=== PATIENT | female | born 2000 | race Caucasian/White ===

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

== ENCOUNTER → 2020-01-19 | Outpatient (CLI) | payer BC, OTHER | LOC: M LABSMTC 14:40 | PROVIDERS: ATTEND Family Medicine | DX: Z20.828 Contact with and (suspected) exposure to other viral communicable diseases (principal) ==

== ENCOUNTER → 2020-06-07 | Outpatient (REF) | payer OTHER ==
[~2020-06-07] MED LIST: ACET-683 PO; BABY ASP; FERR325T3 PO; IBUP-1022 PO; IBUP80TA PO; LABE200T32 PO; MACR100C43 PO; MAPA500T2 PO; ONDA4TAB6 PO; Ortho-Evra TD; PRENTAB9 PO; RANI15TA PO; RANI1SYP PO; asprin
== END ==
LOC: M SFHCWAGY 12:48
PROVIDERS: ATTEND Specialist
DX: Z34.83 Encounter for supervision of other normal pregnancy, third trimester (principal)

== ENCOUNTER → 2020-06-11 | Outpatient (CLI) | payer BC ==
--- NOTE | 2020-06-11 09:41 | REP ---
INDICATION: GROWTH - HYPERTENSION COMPARISON: 05/21/2020 TECHNIQUE: Transabdominal obstetrical ultrasound with color Doppler evaluation. FINDINGS: Examination demonstrates a single live intrauterine in cephalic presentation. motion is identified by technologist. Placenta is noted posterior and grade 3 without evidence for placenta previa or abruption. Amniotic fluid volume is normal. Cervix appears closed.. Gestational age by LMP 36 weeks 1 day with DESIREE 07/08/2020. Gestational age by current measurements 34 weeks 3 days with DESIREE 07/20/2020. FHR equals 129 beats per minute. Estimated weight 2409 grams (12thpercentile based on age by LMP). ASHWINI: 9.5 cm (7.7-24.8) Umbilical artery 1 SD ratio: 2.75 (1.63-3.50) IMPRESSION: Single live intrauterine in cephalic presentation demonstrating relatively appropriate interval growth. No gross abnormalities are identified. <Electronically signed by Mars Fu > 06/11/20 0937
== END ==
LOC: MERGE 09:00 → M WHC 09:01
PROVIDERS: ATTEND Advanced Practice Midwife
DX: O10.013 Pre-existing essential hypertension complicating pregnancy, third trimester (principal); Z3A.36 36 weeks gestation of pregnancy

== ENCOUNTER 2020-06-23 08:39 | Inpatient (IN) | payer BC, OTHER ==
[~2020-06-23] VITALS: Ht 160 cm; Wt 87.8 kg
[2020-06-23] VITALS (25 sets, daily range): BP systolic 112–150; BP diastolic 61–96
[2020-06-23] MEDS ORDERED: ASPI81CH33 PO (08:59)
[2020-06-23] MEDS ORDERED: OXYTOCIN DRIP 30 UNITS in IV 1 EA IV PRN (09:30)
[2020-06-23] MEDS ORDERED: LIDOCAINE 1% MDV 20ML VIAL INFIL PRN (09:30)
[2020-06-23] MEDS ORDERED: METHYLERGONOVINE MALEATE 0.2 MG/ML VIAL (J2210) IM PRN (09:30)
[2020-06-23] MEDS ORDERED: OXYTOCIN INJ 10 UNITS/ML VIAL (J2590) IM PRN (09:30)
[2020-06-23] MEDS ORDERED: FERR325T81 PO (09:39)
[2020-06-23] MEDS ORDERED: miSOPROStol 50MCG 1/2 TABLET PO SCH (09:45)
[2020-06-23 10:26] LABS: HEMATOCRIT 32.2 % (36.0-47.0); MEAN CORPUSCULAR HEMOGLOBIN 23.2 pg (27.0-33.0); MEAN CORPUSCULAR HGB CONC 31.1 g/dl (32.0-36.5); MEAN CORPUSCULAR VOLUME 74.7 fl (80.0-96.0); PLATELET COUNT, AUTOMATED 199 10^3/uL (150-450); RED BLOOD COUNT 4.31 10^6/uL (4.00-5.40); WHITE BLOOD COUNT 6.8 10^3/uL (4.0-10.0)
[2020-06-23 11:18] LABS: ALT/SGPT 17 U/L (12-78); BILIRUBIN,TOTAL 0.4 MG/DL (0.2-1.0); CREATININE FOR GFR 0.49 MG/DL (0.55-1.30); GLOMERULAR FILTRATION RATE > 60.0 (>60); LDH LACTATE DEHYDROGENASE 213 U/L (84-246); URIC ACID 3.4 MG/DL (2.6-6.0)
--- NOTE | 2020-06-23 12:00 | HPE ---
HISTORY AND PHYSICAL DATE OF ADMISSION: 06/23/2020 HISTORY OF PRESENT ILLNESS: Sammi is a 20-year-old 2 para 1-0-0-1 at 38 weeks gestation, EDC of 07/08/2020 based on last menstrual period and confirmed by first trimester ultrasound. She presents to Labor and Delivery today for induction of labor due to chronic hypertension. [facility] in the first trimester. He course was complicated by chronic hypertension. She has been well-managed with p.o. Labetalol throughout her . OBSTETRIC HISTORY: In September 2018, 37 weeks, 2 days, vaginal delivery following an induction for gestational hypertension, preeclampsia, 6 pound male, vaginal delivery. OBSTETRIC LABS: A positive, antibody screen negative, syphilis negative, gonorrhea and chlamydia negative, hepatitis B negative, hepatitis C negative. HIV negative. Rubella immune. Gestational diabetic screening normal at 110. Urine culture: No growth. GBS is negative. PAST MEDICAL HISTORY: Seborrheic dermatitis, mononucleosis, frequent urinary tract infections, psoriasis, childhood varicella, asthma, chronic hypertension. PAST SURGICAL HISTORY: Tooth extraction. FAMILY HISTORY: Noncontributory. SOCIAL HISTORY: Nonsmoker. Denies alcohol and drug use. Denies any history of sexually transmitted infections. Denies history of abuse, physical, sexual or emotional. ALLERGIES: Bee stings and bubble gum flavors. CURRENT MEDICATIONS: Labetalol, vitamin. OBJECTIVE: Temperature 97.5, pulse 106, respirations 18, blood pressure 131/84, heart rate is 135 with moderate variability, positive accelerations, negative decelerations. There is no pattern of regular contractions. Her abdomen is gravid. Cephalic presentation. Estimated weight 6.5 pounds. Sterile vaginal exam, 1.5 cm dilated, 80% effaced, -2 station. ASSESSMENT: Intrauterine at 38 weeks. heart rate Category 1, essential hypertension. PLAN: Admit patient to Labor and Delivery. Saline lock, out of bed ad raymond, routine laboratories including preeclamptic profile, regular diet at this time. I plan to start Misoprostol 50 mcg p.o. for cervical ripening, will likely start IV Pitocin, consider assisted rupture of membranes. Reviewed risks, benefits and alternatives with the patient and her partner, all of their questions have been answered. She has been verbally consented for emergency surgery and blood products if they are necessary. I do anticipate cervical ripening, labor and a spontaneous vaginal delivery.
[2020-06-23] MEDS ORDERED: LR 1,000 ML IV SCH (13:55)
[2020-06-23] MEDS ORDERED: OXYTOCIN DRIP 30 UNITS in IV 1 EA IV SCH (13:55)
[2020-06-23] MEDS ORDERED: ACETAMINOPHEN 500 MG TAB PO PRN (18:25)
[2020-06-23] MEDS: LABETALOL 200 MG TAB PO SCH (18:55)
[2020-06-23] MEDS ORDERED: BUTORPHANOL 2 MG/ML INJ (J0595) IV ONE (23:05)
[2020-06-23] MEDS ORDERED: PROMETHAZINE INJ 25 MG/ML VIAL (J2550) IV ONE (23:05)
[2020-06-24] VITALS (8 sets, daily range): BP systolic 125–141; BP diastolic 70–88
[2020-06-24] MEDS ORDERED: ACETAMINOPHEN TAB 650MG DOSE (2X325MG) PO PRN (00:20)
[2020-06-24] MEDS ORDERED: RHOGAM 300 MCG (1500 IU) INJ (J2790) IM SCH (00:20)
[2020-06-24] MEDS ORDERED: MEASLES,MUMPS,RUBELLA VACCINE INJ (MMR-II) (90707) SC SCH (00:20)
[2020-06-24] MEDS ORDERED: DIBUCAINE 1% OINTMENT 30GM TOP PRN (00:20)
[2020-06-24] MEDS ORDERED: IBUPROFEN 600MG TAB PO PRN (00:20)
[2020-06-24] MEDS ORDERED: IBUPROFEN 800 MG TAB PO PRN (00:20)
[2020-06-24] MEDS ORDERED: DOCUSATE SODIUM 100MG CAPSULE PO PRN (00:20)
--- NOTE | 2020-06-24 09:37 | DN ---
DELIVERY NOTE DATE OF DELIVERY: 06/23/2020 TIME OF : 2349 GENDER: Male APGARS: 9 and 9 LACERATIONS: Vaginal laceration ANESTHESIA: ESTIMATED BLOOD LOSS: 500 mL COUNTS: Correct and verified DESCRIPTION OF DELIVERY: Sammi Barragan is a 20-year-old 2, para 2-0-0-2 now, who was admitted to labor and delivery for induction of labor. Misoprostol and I.V. Pitocin were used and labor did ensue. She coped with her labor with I.V. pain medication. She reached full dilation at 2345. She pushed to a normal spontaneous vaginal delivery of a live male infant in OA position with restitution to ROT position at 2349. There was nuchal cord x1, loose, that was reduced manually at the time of delivery. shoulders delivered spontaneously and the corpus immediately followed. He was placed on the maternal abdomen, crying and active. His mouth and nares were bulb suctioned. The cord was clamped x2 once pulsations ceased and cut by the father of the baby under my direction. Cord blood was obtained. A spontaneous expulsion of an intact placenta with three-vessel cord by Kimball mechanism was at 2354. Uterine hemostasis was achieved with I.V. Uterine hemostasis achieved with Pitocin rapid infusion and uterine fundal massage. Estimated blood loss was 500 mL. Perineum and vaginal inspected and noted to have a vaginal laceration that had two sutures placed with 3-0 Vicryl Rapide for hemostasis. male weighed 3140 grams, 6 pounds 15 ounces. Apgars were 9 and 9. Mom is going to breastfeed her son and the family has named him Usama. At the close of delivery, lap counts, needle counts, and instrument counts were correct and verified. [facility]
[2020-06-24] MEDS: PRENATAL VITAMINS CHEWABLE TABLET PO SCH (09:50)
[2020-06-24] MEDS: LABETALOL 200 MG TAB PO SCH ×2 (09:53→20:33)
[2020-06-25 05:39] VITALS: BP 135/70
[2020-06-25] MEDS: PRENATAL VITAMINS CHEWABLE TABLET PO SCH (08:57)
[2020-06-25 08:58] VITALS: BP 116/81
[2020-06-25] MEDS: LABETALOL 200 MG TAB PO SCH (08:58)
== END 2020-06-25 10:14 | disposition home or self-care (01) | DRG 560 ==
LOC: M LDI 08:39 → M OBS 06-24 01:40
PROVIDERS: ADMIT Advanced Practice Midwife; ATTEND Advanced Practice Midwife
PROC: 10E0XZZ Delivery of Products of Conception, External Approach (ICD-10-PCS; principal; 2020-06-23)
PROC: 3E033VJ Introduction of Other Hormone into Peripheral Vein, Percutaneous Approach (ICD-10-PCS; 2020-06-23)
PROC: 0HQ9XZZ Repair Perineum Skin, External Approach (ICD-10-PCS; 2020-06-23)
DX: O10.02 Pre-existing essential hypertension complicating childbirth (principal); Z3A.38 38 weeks gestation of pregnancy; Z37.0 Single live birth; O69.81X0 Labor and delivery complicated by cord around neck, without compression, not applicable or unspecified; O70.0 First degree perineal laceration during delivery

== ENCOUNTER → 2021-09-02 | Outpatient (REF) | payer OTHER ==
[~2021-09-02] MED LIST changes: -ACET-683 PO; +ASPI81CH33 PO; -BABY ASP; +COLA100C5 PO; +EXCETAB81 PO; -FERR325T3 PO; +FERR325T81 PO; -IBUP-1022 PO; -IBUP80TA PO; -LABE200T32 PO; +LEVO175T2 PO; +LEVO200T4 PO; +LISI10TA22 PO; +LISI40TA4 PO; -MACR100C43 PO; -MAPA500T2 PO; +MIRA3350 PO; +MM S100C PO; +OMEP40CA4 PO; -ONDA4TAB6 PO; -Ortho-Evra TD; -PRENTAB9 PO; -RANI15TA PO; -RANI1SYP PO; +REGL10TA6 PO; +TOPA100T12 PO; +TYLE325T5 PO; +VENTAER INH; +WOME5TAB PO; +ZOFR4TAB16 PO; -asprin; +vitamin d PO
[2021-09-02 15:51] LABS: BASO % 0.2 % (0.0-1.0); EOS # 0.1 10^3/uL (0.0-0.5); EOS % 1.7 % (0.0-3.0); HEMATOCRIT 36.2 % (36.0-47.0); HEMOGLOBIN 11.3 g/dl (12.0-15.5); LYMPH # 1.1 10^3/uL (1.5-5.0); LYMPH % 19.9 % (24.0-44.0); MEAN CORPUSCULAR HEMOGLOBIN 25.2 pg (27.0-33.0); MEAN CORPUSCULAR HGB CONC 31.2 g/dl (32.0-36.5); MEAN CORPUSCULAR VOLUME 80.8 fl (80.0-96.0); MONO # 0.5 10^3/uL (0.0-0.8); MONO % 8.5 % (2.0-8.0); NEUTROPHILS # 3.7 10^3/uL (1.5-8.5); NEUTROPHILS % 69.5 % (36.0-66.0); PLATELET COUNT, AUTOMATED 251 10^3/uL (150-450); RED BLOOD COUNT 4.48 10^6/uL (4.00-5.40); WHITE BLOOD COUNT 5.3 10^3/uL (4.0-10.0)
[2021-09-02 16:19] LABS: ALBUMIN 3.6 GM/DL (3.2-5.2); ALT/SGPT 18 U/L (12-78); BILIRUBIN,TOTAL 0.7 MG/DL (0.2-1.0); BLOOD UREA NITROGEN 18 MG/DL (7-18); CALCIUM LEVEL 9.3 MG/DL (8.5-10.1); CARBON DIOXIDE LEVEL 31 MEQ/L (21-32); CHLORIDE LEVEL 106 MEQ/L (98-107); CHOLESTEROL LEVEL 174 MG/DL (<200); CHOLESTEROL RISK RATIO 2.636 (<5); CREATININE FOR GFR 0.64 MG/DL (0.55-1.30); FERRITIN 7 NG/ML (8-252); FREE T4 1.49 NG/DL (0.76-1.46); GLOMERULAR FILTRATION RATE > 60.0 (>58); GLUCOSE, FASTING 93 MG/DL (70-100); HDL CHOLESTEROL 66 MG/DL (>40); IRON (FE) 39 UG/DL (50-170); LDL CHOLESTEROL 92 MG/DL (<100); NON-HDL-C 108 MG/DL; PERCENT SATURATION 10.2 % (13.2-45.0); POTASSIUM SERUM 4.7 MEQ/L (3.5-5.1); SODIUM LEVEL 140 MEQ/L (136-145); TOTAL IRON BINDING CAPACITY 381 UG/DL (250-450); TOTAL PROTEIN 6.8 GM/DL (6.4-8.2); TRIGLYCERIDES LEVEL 79 MG/DL (<150)
[2021-09-02 17:56] LABS: HEMOGLOBIN A1c 5.1 %
== END ==
LOC: M SFHCCLAY 10:11
PROVIDERS: ATTEND Nurse Practitioner Family
DX: D50.9 Iron deficiency anemia, unspecified (principal); E78.2 Mixed hyperlipidemia; I10 Essential (primary) hypertension; E03.9 Hypothyroidism, unspecified; E55.9 Vitamin D deficiency, unspecified; E66.01 Morbid (severe) obesity due to excess calories

== ENCOUNTER → 2021-11-11 | Outpatient (REF) | payer OTHER ==
[2021-11-11 12:09] LABS: HEMATOCRIT 36.5 % (36.0-47.0); HEMOGLOBIN 11.6 g/dl (12.0-15.5); MEAN CORPUSCULAR HEMOGLOBIN 26.2 pg (27.0-33.0); MEAN CORPUSCULAR HGB CONC 31.8 g/dl (32.0-36.5); MEAN CORPUSCULAR VOLUME 82.4 fl (80.0-96.0); PLATELET COUNT, AUTOMATED 252 10^3/uL (150-450); RED BLOOD COUNT 4.43 10^6/uL (4.00-5.40); WHITE BLOOD COUNT 5.1 10^3/uL (4.0-10.0)
[2021-11-11 12:38] LABS: ALBUMIN 3.6 GM/DL (3.2-5.2); ALT/SGPT 21 U/L (12-78); BILIRUBIN,TOTAL 0.6 MG/DL (0.2-1.0); BLOOD UREA NITROGEN 19 MG/DL (7-18); CALCIUM LEVEL 8.7 MG/DL (8.5-10.1); CARBON DIOXIDE LEVEL 31 MEQ/L (21-32); CHLORIDE LEVEL 106 MEQ/L (98-107); CHOLESTEROL LEVEL 188 MG/DL (<200); CHOLESTEROL RISK RATIO 2.805 (<5); CREATININE FOR GFR 0.74 MG/DL (0.55-1.30); FREE T4 0.97 NG/DL (0.76-1.46); GLOMERULAR FILTRATION RATE > 60.0 (>58); GLUCOSE, FASTING 96 MG/DL (70-100); HDL CHOLESTEROL 67 MG/DL (>40); LDL CHOLESTEROL 104 MG/DL (<100); NON-HDL-C 121 MG/DL; POTASSIUM SERUM 4.7 MEQ/L (3.5-5.1); SODIUM LEVEL 141 MEQ/L (136-145); TOTAL PROTEIN 6.6 GM/DL (6.4-8.2); TRIGLYCERIDES LEVEL 83 MG/DL (<150)
[2021-11-11 13:51] LABS: TOTAL 25(OH) VITAMIN D 22.8 NG/ML (30.0-100.0)
== END ==
LOC: M SFHCCLAY 08:09
PROVIDERS: ATTEND Nurse Practitioner Family
DX: I10 Essential (primary) hypertension (principal); E55.9 Vitamin D deficiency, unspecified; E03.9 Hypothyroidism, unspecified

== ENCOUNTER 2021-12-04 13:10 | Observation (INO) | payer BC, OTHER ==
[~2021-12-04] VITALS: Ht 170.2 cm; Wt 145.5 kg
[2021-12-04] MEDS ORDERED: PROP10TA56 PO (13:17)
[2021-12-04] MEDS ORDERED: ATOR1TAB19 PO (13:17)
[2021-12-04] MEDS ORDERED: FLUO10CA18 PO (13:17)
[2021-12-04] MEDS ORDERED: FLUTISP (13:17)
[2021-12-04] MEDS ORDERED: FERR325T19 PO (13:17)
[2021-12-04] MEDS ORDERED: NS 1,000 ML IV ONE (16:40)
[2021-12-04] MEDS ORDERED: KETOROLAC 30 MG/ML 1ML VIAL IV ONE ×2 (16:40→18:40)
[2021-12-04] MEDS ORDERED: ONDANSETRON 4MG 2ML VIAL IV ONE (16:40)
[2021-12-04 16:55] LABS: BASO % 0.3 % (0.0-1.0); EOS # 0.1 10^3/uL (0.0-0.5); EOS % 2.2 % (0.0-3.0); HEMATOCRIT 38.7 % (36.0-47.0); HEMOGLOBIN 12.1 g/dl (12.0-15.5); LYMPH # 1.1 10^3/uL (1.5-5.0); MEAN CORPUSCULAR HEMOGLOBIN 26.2 pg (27.0-33.0); MEAN CORPUSCULAR HGB CONC 31.3 g/dl (32.0-36.5); MEAN CORPUSCULAR VOLUME 83.9 fl (80.0-96.0); MONO # 0.5 10^3/uL (0.0-0.8); MONO % 8.7 % (2.0-8.0); NEUTROPHILS # 4.2 10^3/uL (1.5-8.5); NEUTROPHILS % 69.6 % (36.0-66.0); PLATELET COUNT, AUTOMATED 252 10^3/uL (150-450); RED BLOOD COUNT 4.61 10^6/uL (4.00-5.40)
[2021-12-04 17:32] LABS: ALBUMIN 3.6 GM/DL (3.2-5.2); BILIRUBIN,DIRECT 0.1 MG/DL (0.0-0.2); BILIRUBIN,TOTAL 0.6 MG/DL (0.2-1.0); TOTAL PROTEIN 6.9 GM/DL (6.4-8.2)
[2021-12-04] MEDS ORDERED: TAMSULOSIN 0.4 MG CAP PO ONE (18:40)
[2021-12-04] MEDS ORDERED: cefTRIAXone SOD 1 GM in D5W MINI-BAG PLUS 50 ML IV ONE (18:50)
[2021-12-04] MEDS ORDERED: ONDANSETRON 4MG 2ML VIAL IV PRN (19:45)
[2021-12-04] MEDS: LR 1,000 ML IV SCH (19:45)
[2021-12-04] MEDS ORDERED: ACETAMINOPHEN TAB 650MG DOSE (2X325MG) PO PRN (19:45)
[2021-12-04] MEDS ORDERED: MORPHINE 2 MG/ML 1ML VIAL IV PRN (19:45)
[2021-12-04 19:52] LABS: RSV AMPLIFICATION NEGATIVE (NEGATIVE)
[2021-12-04] MEDS ORDERED: EXCETAB32 PO (19:54)
[2021-12-04] MEDS ORDERED: RIZA10TA58 SL (19:55)
[2021-12-04] MEDS ORDERED: MULTTAB86 PO (19:55)
[2021-12-04] MEDS ORDERED: HOME MED LIST COMPLETE! XX SCH (20:00)
[2021-12-04 21:29] LABS: INR 0.96; PARTIAL THROMBOPLASTIN TIME 28.3 SECONDS (24.8-34.2)
[2021-12-04] MEDS ORDERED: PROPRANOLOL 10 MG TAB PO PRN (21:55)
[2021-12-04] MEDS ORDERED: ALBUTEROL 90 MCG/ACT 8GM HFA INHALER INH PRN (21:55)
[2021-12-04] MEDS ORDERED: RIZATRIPTAN MLT 10 MG TAB SL PRN (21:55)
[2021-12-05] MEDS ORDERED: KETOROLAC 30 MG/ML 1ML VIAL IV PRN (00:30)
[2021-12-05] MEDS: LR 1,000 ML IV SCH ×2 (02:25→10:18)
[2021-12-05 07:31] LABS: HEMATOCRIT 34.8 % (36.0-47.0); HEMOGLOBIN 10.8 g/dl (12.0-15.5); MEAN CORPUSCULAR HEMOGLOBIN 26.4 pg (27.0-33.0); MEAN CORPUSCULAR VOLUME 85.1 fl (80.0-96.0); PLATELET COUNT, AUTOMATED 222 10^3/uL (150-450); RED BLOOD COUNT 4.09 10^6/uL (4.00-5.40); WHITE BLOOD COUNT 4.5 10^3/uL (4.0-10.0)
[2021-12-05 08:03] LABS: BLOOD UREA NITROGEN 14 MG/DL (7-18); CALCIUM LEVEL 8.7 MG/DL (8.5-10.1); CARBON DIOXIDE LEVEL 28 MEQ/L (21-32); CHLORIDE LEVEL 110 MEQ/L (98-107); CREATININE FOR GFR 0.71 MG/DL (0.55-1.30); GLOMERULAR FILTRATION RATE > 60.0 (>58); GLUCOSE, FASTING 105 MG/DL (70-100); POTASSIUM SERUM 4.3 MEQ/L (3.5-5.1); SODIUM LEVEL 142 MEQ/L (136-145)
[2021-12-05] MEDS ORDERED: FLUTICASONE PROP 0.05% NASAL SPRAY 16 GM (FLONASE) SCH (09:00)
[2021-12-05] MEDS ORDERED: LIDOCAINE 2% 5ML JELLY UROJET As Ordered ONE (12:50)
[2021-12-05] MEDS ORDERED: LIDOCAINE 2% 100MG/5ML SDV (FOR ANES.) As Ordered ONE (12:50)
[2021-12-05] MEDS ORDERED: propofoL 200 MG/20 ML VIAL As Ordered ONE ×2 (12:50→12:51)
[2021-12-05] MEDS ORDERED: fentaNYL 100 MCG/2 ML INJECTION As Ordered ONE (12:50)
[2021-12-05] MEDS ORDERED: MIDAZOLAM INJ 2MG/2ML VIAL (J2250 PER 1MG) As Ordered ONE (12:50)
[2021-12-05] MEDS ORDERED: ONDANSETRON 4MG 2ML VIAL As Ordered ONE (12:51)
[2021-12-05] MEDS ORDERED: ACETAMINOPHEN 1000MG 100ML IV BTL (OFIRMEV) (J0131 PER 10MG) As Ordered ONE (12:51)
[2021-12-05] MEDS ORDERED: ISOVUE-300 61% 50ML VIAL As Ordered ONE (12:55)
[2021-12-05] MEDS ORDERED: fentaNYL 100 MCG/2 ML INJECTION IV PRN (13:35)
[2021-12-05] MEDS ORDERED: oxyCODONE 5MG TAB PO PRN (13:35)
[2021-12-05] MEDS ORDERED: ONDANSETRON 4MG 2ML VIAL IV PRN (13:35)
[2021-12-05] MEDS ORDERED: LR 1,000 ML IV SCH (13:35)
[2021-12-05] MEDS ORDERED: HYDROMORPHONE HCL 0.5 MG/ 0.5 ML SYRINGE (J1170 PER 1) IV PRN (13:35)
[2021-12-05] MEDS ORDERED: PYRI1TAB5 PO (13:38)
[2021-12-05] MEDS ORDERED: OXYB5TAB10 PO (13:38)
[2021-12-05] MEDS ORDERED: ACET1TAB55 PO (13:59)
[2021-12-05] MEDS ORDERED: IBUP-1022 PO (13:59)
[2021-12-05 14:42] VITALS: BP 142/72
[2021-12-05] MEDS ORDERED: FLUoxetine 10 MG CAP PO SCH (21:00)
[2021-12-05] MEDS ORDERED: OMEPRAZOLE 20MG CAP PO SCH (21:00)
[2021-12-05] MEDS ORDERED: ATORVASTATIN 10 MG TAB PO SCH (21:00)
[2021-12-05] MEDS ORDERED: LEVOTHYROXINE 100MCG TABLET (0.1MG) PO SCH (21:00)
[2021-12-05] MEDS ORDERED: FERROUS SULFATE 325MG TAB PO SCH (21:00)
== END 2021-12-05 14:42 | disposition home or self-care (01) ==
LOC: M ED 13:10 → M ED INP 13:11
PROVIDERS: ADMIT Family Medicine; ATTEND Family Medicine
DX: N13.2 Hydronephrosis with renal and ureteral calculous obstruction (principal); J45.909 Unspecified asthma, uncomplicated; K21.9 Gastro-esophageal reflux disease without esophagitis; I10 Essential (primary) hypertension; E78.5 Hyperlipidemia, unspecified; E03.9 Hypothyroidism, unspecified; D50.9 Iron deficiency anemia, unspecified; G43.909 Migraine, unspecified, not intractable, without status migrainosus; F41.9 Anxiety disorder, unspecified; F32.A Depression, unspecified; Z79.899 Other long term (current) drug therapy; Z79.82 Long term (current) use of aspirin
CPT/HCPCS: 36415; 52332; 74176; 74420; 80047; 80048; 80076; 81000; 81015; 83690; 83735; 84702; 85025; 85027; 85610; 85730; 87086; 87631; 96361; 96365; 96375; 96376; 99285; C1769; C2617; J0131; J0696; J1885; J2250; J2270; J2405; J3010; Q9967

== ENCOUNTER → 2022-01-02 | Outpatient (CLI) | payer BC ==
[~2022-01-02] MED LIST changes: +ACET1TAB55 PO; +ATOR1TAB19 PO; +EXCETAB32 PO; +FERR325T19 PO; +FLUO10CA18 PO; +FLUTISP; +IBUP-1022 PO; +MACR100C43 PO; +MULTTAB86 PO; +OXYB5TAB10 PO; +PROP10TA56 PO; +PYRI1TAB5 PO; +RIZA10TA58 SL
[2022-01-02 11:49] LABS: HEMATOCRIT 38.4 % (36.0-47.0); HEMOGLOBIN 12.2 g/dl (12.0-15.5); MEAN CORPUSCULAR HEMOGLOBIN 26.2 pg (27.0-33.0); MEAN CORPUSCULAR HGB CONC 31.8 g/dl (32.0-36.5); MEAN CORPUSCULAR VOLUME 82.4 fl (80.0-96.0); PLATELET COUNT, AUTOMATED 270 10^3/uL (150-450); RED BLOOD COUNT 4.66 10^6/uL (4.00-5.40); WHITE BLOOD COUNT 5.9 10^3/uL (4.0-10.0)
[2022-01-02 16:21] LABS: CHLORIDE LEVEL 103 MMOL/L (98-107); POTASSIUM SERUM 4.2 MMOL/L (3.5-5.1); SODIUM LEVEL 141 MMOL/L (136-145)
[2022-01-02 16:22] LABS: ALBUMIN 3.6 G/DL (3.2-5.2); CARBON DIOXIDE LEVEL 28 MMOL/L (20-31)
[2022-01-02 16:23] LABS: PTH INTACT 63.8 PG/ML (18.5-88.0)
[2022-01-02 16:26] LABS: ALKALINE PHOSPHATASE 77 U/L (46-116)
[2022-01-02 16:27] LABS: BLOOD UREA NITROGEN 15 MG/DL (9-23); CALCIUM LEVEL 9.1 MG/DL (8.5-10.1); GLUCOSE, FASTING 99 MG/DL (60-100)
[2022-01-02 16:29] LABS: ALT/SGPT 20 U/L (7.0-40); AST/SGOT 15 U/L (<34); BILIRUBIN,TOTAL 0.5 MG/DL (0.3-1.2)
[2022-01-02 16:30] LABS: CREATININE FOR GFR 0.69 MG/DL (0.55-1.30); GLOMERULAR FILTRATION RATE > 60.0 (>58); TOTAL PROTEIN 6.4 G/DL (5.7-8.2)
== END ==
LOC: M CLY 08:28
PROVIDERS: ATTEND Urology
DX: N20.1 Calculus of ureter (principal)

== ENCOUNTER 2022-01-05 14:12 | Emergency (ER) | payer BC, OTHER ==
[~2022-01-05] VITALS: Ht 170.2 cm; Wt 148.0 kg
[~2022-01-05 14:12] MED LIST changes: -MACR100C43 PO
[2022-01-05] MEDS ORDERED: KETOROLAC 30 MG/ML 1ML VIAL IV ONE (14:50)
[2022-01-05] MEDS ORDERED: ONDANSETRON 4MG 2ML VIAL IV ONE (14:50)
[2022-01-05] MEDS ORDERED: NS 500 ML IV ONE (14:50)
[2022-01-05 15:34] LABS: BASO % 0.3 % (0.0-1.0); EOS # 0.2 10^3/uL (0.0-0.5); EOS % 2.6 % (0.0-3.0); HEMATOCRIT 38.8 % (36.0-47.0); HEMOGLOBIN 12.4 g/dl (12.0-15.5); LYMPH # 1.3 10^3/uL (1.5-5.0); LYMPH % 18.6 % (24.0-44.0); MEAN CORPUSCULAR HEMOGLOBIN 26.2 pg (27.0-33.0); MONO # 0.6 10^3/uL (0.0-0.8); MONO % 8.5 % (2.0-8.0); NEUTROPHILS # 4.8 10^3/uL (1.5-8.5); NEUTROPHILS % 69.9 % (36.0-66.0); PLATELET COUNT, AUTOMATED 246 10^3/uL (150-450); RED BLOOD COUNT 4.73 10^6/uL (4.00-5.40); WHITE BLOOD COUNT 6.9 10^3/uL (4.0-10.0)
[2022-01-05 16:10] LABS: BILIRUBIN,DIRECT 0.1 MG/DL (<0.4)
[2022-01-05 16:13] LABS: ALBUMIN 3.8 G/DL (3.2-5.2); ALKALINE PHOSPHATASE 79 U/L (46-116); ALT/SGPT 32 U/L (7.0-40); AST/SGOT 45 U/L (<34); BILIRUBIN,TOTAL 0.6 MG/DL (0.3-1.2); BLOOD UREA NITROGEN 13 MG/DL (9-23); CARBON DIOXIDE LEVEL 23 MMOL/L (20-31); CHLORIDE LEVEL 105 MMOL/L (98-107); CREATININE FOR GFR 0.61 MG/DL (0.55-1.30); GLOMERULAR FILTRATION RATE > 60.0 (>58); GLUCOSE, FASTING 75 MG/DL (60-100); POTASSIUM SERUM 5.4 MMOL/L (3.5-5.1); SODIUM LEVEL 138 MMOL/L (136-145); TOTAL PROTEIN 7.2 G/DL (5.7-8.2)
[2022-01-05] MEDS ORDERED: NITROFURANTOIN (MACROBID) 100 MG CAP PO ONE (17:05)
[2022-01-05] MEDS ORDERED: PHENAZOPYRIDINE 100 MG TAB PO ONE (17:05)
[2022-01-05] MEDS ORDERED: PYRI1TAB5 PO (17:16)
[2022-01-05] MEDS ORDERED: OXYB5TAB10 PO (17:17)
[2022-01-05] MEDS ORDERED: MACR100C43 PO (17:18)
[2022-01-05 18:00] VITALS: BP 131/91
[2022-01-05] MEDS ORDERED: oxyBUTYnin 5 MG TAB PO SCH (21:00)
== END 2022-01-05 18:18 | disposition home or self-care (01) ==
LOC: M ED 14:12
DX: N30.00 Acute cystitis without hematuria (principal); R10.9 Unspecified abdominal pain; I10 Essential (primary) hypertension; E87.5 Hyperkalemia; K31.84 Gastroparesis; J45.909 Unspecified asthma, uncomplicated; Z86.73 Personal history of transient ischemic attack (TIA), and cerebral infarction without residual deficits; Z90.79 Acquired absence of other genital organ(s); Z88.8 Allergy status to other drugs, medicaments and biological substances; Z91.040 Latex allergy status; Z91.030 Bee allergy status; Z96.0 Presence of urogenital implants; Z79.51 Long term (current) use of inhaled steroids; Z79.890 Hormone replacement therapy; Z79.899 Other long term (current) drug therapy
CPT/HCPCS: 74018; 76775; 80048; 80076; 81000; 85025; 87086; 96361; 96374; 96375; 99284; J1885; J2405

== ENCOUNTER → 2022-01-05 | Outpatient (REF) | payer OTHER | LOC: M LABSMT 13:21 | PROVIDERS: ATTEND Urology | DX: N20.1 Calculus of ureter (principal) ==

== ENCOUNTER → 2022-01-08 | Outpatient (CLI) | payer BC, OTHER ==
[~2022-01-08] MED LIST changes: +MACR100C43 PO
== END ==
LOC: M LABSMTC 11:31
PROVIDERS: ATTEND Anesthesiology
DX: Z01.812 Encounter for preprocedural laboratory examination (principal); Z20.822 Contact with and (suspected) exposure to COVID-19

== ENCOUNTER 2022-01-12 09:14 | Day surgery (SDC) | payer BC, OTHER ==
[~2022-01-12] VITALS: Ht 170.2 cm; Wt 147.6 kg
[~2022-01-12 09:14] MED LIST changes: +ISOVUE-300 61% 50ML VIAL As Ordered ONE; +LIDOCAINE 2% 100MG/5ML SDV (FOR ANES.) As Ordered ONE; +MIDAZOLAM INJ 2MG/2ML VIAL (J2250 PER 1MG) As Ordered ONE; +ONDANSETRON 4MG 2ML VIAL As Ordered ONE; +ceFAZolin SOD 1 GM in D5W MINI-BAG PLUS 50 ML IV ONE; +ceFAZolin SOD 2 GM in IV 1 EA IV ONE; +fentaNYL 100 MCG/2 ML INJECTION As Ordered ONE; +propofoL 200 MG/20 ML VIAL As Ordered ONE
[2022-01-12] MEDS ORDERED: LR 1,000 ML IV SCH (09:30)
[2022-01-12] MEDS ORDERED: propofoL 200 MG/20 ML VIAL As Ordered ONE (12:02)
[2022-01-12] MEDS ORDERED: ONDANSETRON 4MG 2ML VIAL IV PRN (12:35)
[2022-01-12] MEDS ORDERED: oxyCODONE 5MG TAB PO PRN (12:35)
[2022-01-12] MEDS ORDERED: fentaNYL 100 MCG/2 ML INJECTION IV PRN (12:35)
[2022-01-12] MEDS ORDERED: MACR100C43 PO (12:48)
[2022-01-12] MEDS ORDERED: PYRI1TAB5 PO (12:48)
[2022-01-12] MEDS ORDERED: HYDR-3713 PO (12:48)
[2022-01-12] MEDS ORDERED: OXYB5TAB10 PO (12:48)
[2022-01-12] MEDS ORDERED: METOCLOPRAMIDE INJ 10MG/2ML VIAL As Ordered ONE (13:01)
[2022-01-12 13:40] VITALS: BP 183/91
== END 2022-01-12 13:58 | disposition home or self-care (01) ==
LOC: M SDC 09:14
PROVIDERS: ATTEND Urology
DX: N20.1 Calculus of ureter (principal); I10 Essential (primary) hypertension; E78.5 Hyperlipidemia, unspecified; E03.9 Hypothyroidism, unspecified; K76.0 Fatty (change of) liver, not elsewhere classified; K21.9 Gastro-esophageal reflux disease without esophagitis; D64.9 Anemia, unspecified; J45.909 Unspecified asthma, uncomplicated; G43.909 Migraine, unspecified, not intractable, without status migrainosus; K31.84 Gastroparesis; Z86.73 Personal history of transient ischemic attack (TIA), and cerebral infarction without residual deficits; F41.9 Anxiety disorder, unspecified; F32.A Depression, unspecified; Z79.899 Other long term (current) drug therapy; Z79.51 Long term (current) use of inhaled steroids
CPT/HCPCS: 52356; 74420; C1769; C2617; J0690; J1100; J2250; J2405; J2765; J3010

== ENCOUNTER → 2023-10-02 | Outpatient (CLI) | payer OTHER ==
[~2023-10-02] MED LIST changes: +FLUO-290 PO; -FLUO10CA18 PO; +HYDR-3713 PO; -ISOVUE-300 61% 50ML VIAL As Ordered ONE; -LIDOCAINE 2% 100MG/5ML SDV (FOR ANES.) As Ordered ONE; -MIDAZOLAM INJ 2MG/2ML VIAL (J2250 PER 1MG) As Ordered ONE; -ONDANSETRON 4MG 2ML VIAL As Ordered ONE; -OXYB5TAB10 PO; +OXYB5TAB14 PO; -ceFAZolin SOD 1 GM in D5W MINI-BAG PLUS 50 ML IV ONE; -ceFAZolin SOD 2 GM in IV 1 EA IV ONE; -fentaNYL 100 MCG/2 ML INJECTION As Ordered ONE; -propofoL 200 MG/20 ML VIAL As Ordered ONE
[2023-10-02 17:34] LABS: BASO % 0.7 % (0.0-1.0); EOS # 0.1 10^3/uL (0.0-0.5); EOS % 1.5 % (0.0-3.0); HEMATOCRIT 29.3 % (36.0-47.0); HEMOGLOBIN 8.5 g/dl (12.0-15.5); LYMPH # 1.3 10^3/uL (1.5-5.0); LYMPH % 21.9 % (24.0-44.0); MEAN CORPUSCULAR HEMOGLOBIN 20.6 pg (27.0-33.0); MEAN CORPUSCULAR VOLUME 71.1 fl (80.0-96.0); MONO # 0.6 10^3/uL (0.0-0.8); MONO % 10.9 % (2.0-8.0); NEUTROPHILS # 3.8 10^3/uL (1.5-8.5); NEUTROPHILS % 64.7 % (36.0-66.0); PLATELET COUNT, AUTOMATED 331 10^3/uL (150-450); RED BLOOD COUNT 4.12 10^6/uL (4.00-5.40); WHITE BLOOD COUNT 5.9 10^3/uL (4.0-10.0)
[2023-10-02 18:05] LABS: FERRITIN 2.7 NG/ML (7.3-270.7); FOLATE 7.4 NG/ML (>5.4)
== END ==
LOC: M PLALAB 16:35
PROVIDERS: ATTEND Internal Medicine Hematology
DX: E61.1 Iron deficiency (principal)

== ENCOUNTER 2023-10-22 15:04 | Outpatient (CLI) | payer OTHER ==
[~2023-10-22] VITALS: Ht 170.2 cm; Wt 148.0 kg
[~2023-10-22 15:04] MED LIST changes: +ALBUTEROL SULFATE 2.5MG/0.5ML INH NEB SOLN INH PRN; +EPINEPHrine INJ 1 MG/ML 1ML AMP IM PRN; +diphenhydrAMINE 50MG/ML VIAL IV PRN; +methylPREDNISolone 125MG 2ML VIAL IV PRN
[2023-10-22 15:10] VITALS: BP 141/98; O2SAT 98
[2023-10-22] MEDS ORDERED: NS 1,000 ML IV SCH (15:30)
[2023-10-22] MEDS: FERRIC CARBOXYMALTOSE INJ 750 MG in NS 250 ML (>50kg) IV ONE (15:31)
[2023-10-22] MEDS ORDERED: PANT40TA29 PO (15:47)
[2023-10-22] MEDS ORDERED: ONDA-282 PO (15:47)
[2023-10-22 17:00] VITALS: BP 168/90; O2SAT 100
== END 2023-10-22 17:00 ==
LOC: M INFU 15:04
PROVIDERS: ATTEND Internal Medicine Hematology
DX: D50.9 Iron deficiency anemia, unspecified (principal); Z88.8 Allergy status to other drugs, medicaments and biological substances; Z91.040 Latex allergy status; Z91.030 Bee allergy status; Z91.048 Other nonmedicinal substance allergy status
CPT/HCPCS: 96365; J1439

== ENCOUNTER 2023-10-29 15:07 | Outpatient (CLI) | payer OTHER ==
[~2023-10-29] VITALS: Ht 167.6 cm; Wt 147.9 kg
[~2023-10-29 15:07] MED LIST changes: +ONDA-282 PO; +PANT40TA29 PO
[2023-10-29] MEDS ORDERED: NS 1,000 ML IV SCH (15:30)
[2023-10-29 15:35] VITALS: BP 187/98; O2SAT 97
[2023-10-29] MEDS: FERRIC CARBOXYMALTOSE INJ 750 MG in NS 250 ML (>50kg) IV ONE (15:50)
[2023-10-29 17:40] VITALS: BP 178/84; O2SAT 100
== END 2023-10-29 17:30 ==
LOC: M INFU 15:07
PROVIDERS: ATTEND Internal Medicine Hematology
DX: D50.9 Iron deficiency anemia, unspecified (principal); Z88.8 Allergy status to other drugs, medicaments and biological substances; Z91.030 Bee allergy status; Z91.040 Latex allergy status; Z91.048 Other nonmedicinal substance allergy status
CPT/HCPCS: 96365; 96366; J1439

== ENCOUNTER → 2024-02-14 | Outpatient (CLI) | payer BC ==
[~2024-02-14] VITALS: Ht 170.2 cm; Wt 145.4 kg
[2024-02-14] MEDS: IRON SUCROSE 300 MG in NS 250 ML IV ONE (12:33)
[2024-02-14 12:49] VITALS: BP 166/87; O2SAT 99
== END ==
LOC: M INFU 12:12
PROVIDERS: ATTEND Internal Medicine Hematology
DX: D50.9 Iron deficiency anemia, unspecified (principal); Z88.8 Allergy status to other drugs, medicaments and biological substances; Z91.040 Latex allergy status; Z91.030 Bee allergy status; Z91.048 Other nonmedicinal substance allergy status
CPT/HCPCS: 96365; 96366; J1756

== ENCOUNTER 2024-02-21 14:25 | Outpatient (CLI) | payer BC ==
[~2024-02-21] VITALS: Ht 170.2 cm; Wt 145.0 kg
[2024-02-21 14:30] VITALS: BP 170/79; O2SAT 98
[2024-02-21] MEDS: IRON SUCROSE 300 MG in NS 250 ML IV ONE (14:36)
[2024-02-21 16:18] VITALS: BP 147/76; O2SAT 100
== END 2024-02-21 16:25 ==
LOC: M INFU 14:25
PROVIDERS: ATTEND Internal Medicine Hematology
DX: D50.9 Iron deficiency anemia, unspecified (principal); Z88.8 Allergy status to other drugs, medicaments and biological substances; Z91.040 Latex allergy status; Z91.030 Bee allergy status
CPT/HCPCS: 96365; 96366; J1756

== ENCOUNTER 2024-02-28 13:45 | Outpatient (CLI) | payer BC ==
[2024-02-28 13:40] VITALS: BP 166/90; O2SAT 100
[2024-02-28] MEDS: IRON SUCROSE 300 MG in NS 250 ML OVER 90 MIN. IV ONE (13:46)
[2024-02-28 15:25] VITALS: BP 140/85; O2SAT 99
== END 2024-02-28 15:35 ==
LOC: M INFU 13:45
PROVIDERS: ATTEND Internal Medicine Hematology
DX: D50.9 Iron deficiency anemia, unspecified (principal); Z88.8 Allergy status to other drugs, medicaments and biological substances; Z91.030 Bee allergy status; Z91.040 Latex allergy status; Z91.048 Other nonmedicinal substance allergy status
CPT/HCPCS: 96365; 96366; J1756

== ENCOUNTER → 2024-03-11 | Outpatient (CLI) | payer BC ==
[~2024-03-11] MED LIST changes: -ALBUTEROL SULFATE 2.5MG/0.5ML INH NEB SOLN INH PRN; -EPINEPHrine INJ 1 MG/ML 1ML AMP IM PRN; +ISOVUE-370 76% 100ML VIAL As Ordered ONE; -diphenhydrAMINE 50MG/ML VIAL IV PRN; -methylPREDNISolone 125MG 2ML VIAL IV PRN
== END ==
LOC: M RAD 17:09
PROVIDERS: ATTEND Physician Assistant Medical
DX: R22.1 Localized swelling, mass and lump, neck (principal)
CPT/HCPCS: 70491; Q9967

== ENCOUNTER → 2024-08-28 | Outpatient (CLI) | payer BC ==
[~2024-08-28] MED LIST changes: -IBUP-1022 PO; +IBUP600T42 PO; -ISOVUE-370 76% 100ML VIAL As Ordered ONE; +LISI40TA10 PO; -LISI40TA4 PO; +iron liquid PO
== END ==
LOC: M RAD 10:21
PROVIDERS: ATTEND Specialist
DX: R59.0 Localized enlarged lymph nodes (principal)

== ENCOUNTER → 2024-10-31 | Outpatient (CLI) | payer BC ==
[~2024-10-31] MED LIST changes: +E-Z-PAQUE 96% w/w SUSP 176 GM BTL As Ordered ONE
== END ==
LOC: M RAD 08:11
PROVIDERS: ATTEND Internal Medicine Gastroenterology
DX: K31.84 Gastroparesis (principal); D50.9 Iron deficiency anemia, unspecified; K21.9 Gastro-esophageal reflux disease without esophagitis